=== PATIENT | male | born 1995 | race African-American/Black ===

== ENCOUNTER 2016-08-23 12:04 | Emergency (ER) | payer MEDICAID ==
[~2016-08-23] VITALS: Ht 193 cm; Wt 76.8 kg
[2016-08-23 12:07] VITALS: BP 131/78; PULSE 80; RESP 12; TEMP 98.6; O2SAT 97
--- NOTE | 2016-08-23 12:46 | PD ---
HPI Chief Complaint: Abdominal Pain Time Seen by Provider: 12:34 Travel History International Travel<30 days: No Contact w/Intl Traveler<30days: No Traveled to known affect area: No History of Present Illness HPI Patient is a 21 year old male who presents to ER with c/o of 1 week of continuous left sided testicular pain with penile discharge. Reports no trauma to testicles/penis. Reports that he has been sexually active with a "random partner." Reports that he does not have hx of std's in the past. reports dysuria with urgency and freq with discharge to penis which started 1 week ago along with his testicular pain PFS Past Medical History Medical History: Denies Significant Hx Immunizations Current: No Tetanus Vaccination: > 5 Years Influenza Vaccination: No Past Surgical History Surgical History: No Previous Surgery Family History Family History: Negative Social History Alcohol Use: Yes (LIQUOR DAILY ) Tobacco Use: No Substance Use: Yes (MARIJUANA ) Allergies-Medications (Allergen,Severity, Reaction): Coded Allergies: No Known Allergies (Unverified , 08/23/16) Reported Meds & Prescriptions Reported Meds & Active Scripts Active Doxycycline Hyclate 100 Mg Cap 100 Mg PO BID 10 Days Review of Systems General / Constitutional: No: Fever Eyes: No: Visual changes HENT: No: Headaches Cardiovascular: No: Chest Pain or Discomfort Respiratory: No: Shortness of Breath Gastrointestinal: No: Nausea, Vomiting, Diarrhea, Abdominal Pain Genitourinary: Positive: Dysuria, Other (penile discharge, testicular pain) Musculoskeletal: No: Pain Skin: No Rash Neurologic: No: Weakness Psychiatric: No: Depression Endocrine: No: Polydipsia Hematologic/Lymphatic: No: Easy Bruising Physical Exam Narrative GENERAL: No acute distress, nontoxic SKIN: Warm and dry. HEAD: Atraumatic. Normocephalic. EYES: Pupils equal and round. No scleral icterus. No injection or drainage. ENT: No nasal bleeding or discharge. Mucous membranes pink and moist. NECK: Trachea midline. No JVD. CARDIOVASCULAR: Regular rate and rhythm. No murmur appreciated. RESPIRATORY: No accessory muscle use. Clear to auscultation. Breath sounds equal bilaterally. GASTROINTESTINAL: Abdomen soft, non-tender, nondistended. Hepatic and splenic margins not palpable. : Exam performed with RN at bedside, patient with bilateral descended testicles in vertical lie, normal cremasterics reflex bilaterally, minimal clear penile discharge, circumcised phallus MUSCULOSKELETAL: No obvious deformities. No clubbing. No cyanosis. No edema. NEUROLOGICAL: Awake and alert. No obvious cranial nerve deficits. Motor grossly within normal limits. Normal speech. PSYCHIATRIC: Appropriate mood and affect; insight and judgment normal. Data Data Last Documented VS Vital Signs Date Time Temp Pulse Resp B/P Pulse Ox O2 Delivery O2 Flow Rate FiO2 08/23/16 13:14 83 20 167/105 95 Room Air 08/23/16 12:07 98.6 Orders Gc And Chlamydia Pcr (08/23/16 12:42) Ua Includes Microscopic (08/23/16 12:42) Us Testicles W Doppler (08/23/16 ) Azithromycin Powd Pack (Zithromax Powd P (08/23/16 14:30) Lidocaine 1% Inj (50 Ml) (Xylocaine 1% I (08/23/16 14:30) Ceftriaxone Inj (Rocephin Inj) (08/23/16 14:30) MDM Medical Decision Making Medical Screen Exam Complete: Yes Emergency Medical Condition: Yes Interpretation(s) Vital Signs Date Time Temp Pulse Resp B/P Pulse Ox O2 Delivery O2 Flow Rate FiO2 08/23/16 13:14 83 20 167/105 95 Room Air 08/23/16 12:35 18 08/23/16 12:07 98.6 80 12 131/78 97 Room Air Differential Diagnosis Urethritis, testicular torsion, epididymitis, UTI Narrative Course 21-year-old male who presents to emergency room with complaints of left-sided testicular pain along with penile discharge for the past week. Patient reports that testicular pain has been ongoing for the past week, has not been intermittent in nature. Ultrasound of testicles ordered to evaluate for possible testicular torsion UA as well as urine gonorrhea/chlamydia cultures ordered for evaluation of possible urethritis. Patient does have discharge and exam, patient request be treated for possible STDs at this time. Testicular ultrasound shows: Left epididymal orchitis. Left testicular microlithiasis. Left scrotal wall thickening. Left varicocele. A copy patient 's ultrasound report was given to patient. Discussed need for treatment for this epididymal orchitis. Patient will follow-up with urology as outpatient. Understands that all sexual partners will be treated. copy of us report given to pt at discharge Diagnosis Primary Impression: Epididymitis Additional Impressions: Orchitis and epididymitis Urethritis Patient Instructions: General Instructions Additional Instructions: Please follow up with CULTURES from today, if cultures are positive, all sexual partners will need to be treated, please refrain from sexual activity until all cultures have been resulted Please follow up with urologist as soon as possible Please bring a copy of your ultrasound report to doctor's office for follow-up Return to ER as needed Return to ER immediately if you have return of pain to the testicles Med/Other Pt SpecificInfo: Prescription(s) given Scripts Doxycycline Hyclate 100 Mg [id number] Mg PO BID 10 Days Ref 0 Prov:Isabella Zapata DO 08/23/16 Disposition: 01 DISCHARGE HOME Isabella Zapata DO Aug 23, 2016 12:46
[2016-08-23 13:14] VITALS: BP 167/105; PULSE 83; RESP 20; O2SAT 95
--- NOTE | 2016-08-23 14:08 | RADRPT ---
EXAM DATE/TIME: 08/23/2016 13:04 [facility] COMPARISON: No previous studies available for comparison. INDICATIONS : Left testicle pain for one week. MEDICAL HISTORY : Left testicle pain for one week. SURGICAL HISTORY : None. ENCOUNTER: Initial ACUITY: 1 week PAIN SCORE: 10/10 LOCATION: Bilateral scrotum. MEASUREMENTS: RIGHT TESTICLE: 3.6 x 2.1 x 1.5cm LEFT TESTICLE: 4.2 x 2.9 x 2.7 cm FINDINGS: The right epididymis and right testicle are normal. The left testicle demonstrates increased vascular ity mild inhomogeneity with a few microliths. A mass is not seen. The epididymis is prominent with in creased blood flow. A left-sided varicocele is noted. Mild scrotal thickening on the left. CONCLUSION: Left epididymal orchitis. Left testicular microlithiasis. Left scrotal wall thickening. Left varicoce le. Justin Childress MD on August 23, 2016 at 14:05 Board Certified Radiologist. This report was verified electronically.
[2016-08-23] MEDS ORDERED: DOXY100C PO (14:26)
[2016-08-23] MEDS ORDERED: LIDOCAINE HCL 1% 50 ML VIAL IM ONE (14:30)
[2016-08-23] MEDS ORDERED: AZITHROMYCIN PWD FOR SUSP 1 GM PACKET PO ONE (14:30)
[2016-08-23 15:54] LABS: BLOOD, URINE NEG (NEG); GLUCOSE,URINE NEG (NEG); KETONE, URINE 10 mg/dL (NEG); MUCUS URINE FEW /lpf (OCC); NITRITE,URINE NEG (NEG); PH, URINE 7.5 (5.0-8.5); SQUAMOUS EPITHELIAL CELL URINE <1 /hpf (0-5); URINE COLOR YELLOW (YELLW/STRAW)
[2016-08-23 20:07] LABS: CHLAMYDIA PCR DETECTED (NOT DETECT); NEISSERIA PCR DETECTED (NOT DETECT)
== END 2016-08-23 15:32 | disposition home or self-care (01) ==
LOC: NEPA 12:04
DX: N45.3 Epididymo-orchitis (principal); N34.2 Other urethritis; R36.9 Urethral discharge, unspecified
CPT/HCPCS: 76870; 81001; 87491; 87591; 93975; 96365; 99284; J0696

== ENCOUNTER 2016-08-26 10:57 | Emergency (ER) | payer MEDICAID ==
[~2016-08-26] VITALS: Ht 193 cm; Wt 72.7 kg
[~2016-08-26 10:57] MED LIST: DOXY100C PO
[2016-08-26 10:58] VITALS: BP 118/66; PULSE 63; RESP 15; TEMP 98.2; O2SAT 98
--- NOTE | 2016-08-26 11:51 | PD ---
HPI Chief Complaint: Complaint Time Seen by Provider: 11:50 Travel History International Travel<30 days: No Contact w/Intl Traveler<30days: No Traveled to known affect area: No History of Present Illness HPI 21-year-old male presents to emergency department requesting follow-up from his August 23 visit to the emergency department.. Patient was seen and evaluated in the emergency department and treated for gonorrhea and chlamydia. He states that he did not hear any follow-up with you is positive or not. He currently reports no symptoms. Has no abdominal pain. No fever or chills. No other symptoms to report. History Social History Alcohol Use: Yes (LIQUOR DAILY ) Tobacco Use: No Allergies-Medications (Allergen,Severity, Reaction): Coded Allergies: No Known Allergies (Unverified , 08/23/16) Reported Meds & Prescriptions Reported Meds & Active Scripts Active Doxycycline Hyclate 100 Mg Cap 100 Mg PO BID 10 Days Review of Systems Except as stated in HPI: all other systems reviewed are Neg Physical Exam Narrative GENERAL: Well-nourished, well-developed male patient in no acute distress SKIN: Warm and dry. HEAD: Normocephalic. EYES: No scleral icterus. No injection or drainage. NECK: Supple, trachea midline. No JVD or lymphadenopathy. CARDIOVASCULAR: Regular rate and rhythm without murmurs, gallops, or rubs. RESPIRATORY: Breath sounds equal bilaterally. No accessory muscle use. GASTROINTESTINAL: Abdomen soft, non-tender, nondistended. MUSCULOSKELETAL: No cyanosis, or edema. BACK: Nontender without obvious deformity. No CVA tenderness. Data Data Last Documented VS Vital Signs Date Time Temp Pulse Resp B/P Pulse Ox O2 Delivery O2 Flow Rate FiO2 08/26/16 10:58 98.2 63 15 118/66 98 MDM Medical Screen Exam Complete: Yes Emergency Medical Condition: No Differential Diagnosis STD follow-up, positive gonorrhea Chlamydia August 23, 2016 Narrative Course 21-year-old male presents to the emergency department for follow-up. Patient was positive for gonorrhea and chlamydia following his August 23, 2016 visit. He was treated with azithromycin and Rocephin at that visit. I informed the patient that these results were positive but he was treated and is to follow-up with the health department for further STD testing and test for cure as well as his partners treated. At this time there are no urgent or emergent needs for medical intervention identified. A medical screening exam was performed: At the time of evaluation the presenting medical condition was determined not to be of an emergent nature. The patient was given the option of receiving additional care, but declined. Patient was given options for additional community resources from which to obtain care. The Patient Has Been advised to seek medical attention for their presenting complaint. The patient has been advised to return to the ER at any time if an emergent condition develops. Primary Impression: Encounter for medical screening examination Condition: Jojo Zimmerman Aug 26, 2016 11:51
== END 2016-08-26 11:58 | disposition left against medical advice (07) ==
LOC: NETRI 10:57
DX: A54.9 Gonococcal infection, unspecified (principal); A74.9 Chlamydial infection, unspecified
CPT/HCPCS: 99281

== ENCOUNTER 2016-08-28 03:01 | Emergency (ER) | payer MEDICAID ==
[~2016-08-28] VITALS: Ht 193 cm; Wt 76.0 kg
[2016-08-28 03:03] VITALS: BP 120/77; PULSE 62; RESP 16; TEMP 98.1; O2SAT 98
[2016-08-28] MEDS ORDERED: IBUP-232 PO (13:45)
[2016-08-28] MEDS ORDERED: DOXY100C PO (13:45)
== END 2016-08-28 04:25 | disposition left against medical advice (07) ==
LOC: NED 03:01
DX: N50.819 Testicular pain, unspecified (principal); Z53.21 Procedure and treatment not carried out due to patient leaving prior to being seen by health care provider
CPT/HCPCS: 99281

== ENCOUNTER 2016-08-28 09:13 | Emergency (ER) | payer MEDICAID ==
[~2016-08-28] VITALS: Ht 177.8 cm; Wt 75.0 kg
[2016-08-28 09:18] VITALS: BP 122/79; PULSE 62; RESP 16; TEMP 98.1; O2SAT 98
[2016-08-28] MEDS ORDERED: KETOROLAC TROMETHAMINE 60 MG/2 ML (IM) VIAL IM ONE (10:30)
--- NOTE | 2016-08-28 10:33 | PD ---
HPI Chief Complaint: Complaint Time Seen by Provider: 10:06 Travel History International Travel<30 days: No Contact w/Intl Traveler<30days: No Traveled to known affect area: No History of Present Illness HPI 21yo M with no PMH presents to the ED with c/o persistent left testicular pain for 2 weeks. Pt was seen here on 08/23/15 and US showed left epididymal orchitis and was prescribed doxycycline for 10 days. Pt was also given azithromycin PO and ceftriaxone IM on 08/23/15 and tested positive for chlamydia and gonorrhea. Pt states he never received the prescription for doxycycline so did not take it. +Nausea and NBNB vomiting. Denies any fever, chest pain, sob, abdominal pain. PFSH Past Medical History Diminished Hearing: No Immunizations Current: No Social History Alcohol Use: No (OCC) Tobacco Use: No Substance Use: Yes (MARIJUANA ) Allergies-Medications (Allergen,Severity, Reaction): Coded Allergies: No Known Allergies (Unverified , 08/28/16) Reported Meds & Prescriptions Reported Meds & Active Scripts Active Ibuprofen 600 Mg Tab 600 Mg PO Q8HR PRN Doxycycline Hyclate 100 Mg Cap 100 Mg PO BID 10 Days Doxycycline Hyclate 100 Mg Cap 100 Mg PO BID 10 Days Review of Systems Except as stated in HPI: all other systems reviewed are Neg Physical Exam Narrative GEN: 21yo M not in distress. HEAD: Normocephalic, atraumatic. NECK: Trachea midline. No JVD. CV: S1, S2. Lungs: CTA B/L, equal breath sounds. Abd: soft, NT/ND. No rebound tenderness or guarding. : +Enlarged left testicle, ttp. No penile discharge or rash. No inguinal region ttp. Ext: No calf tenderness. No lower extremity edema. Data Data Last Documented VS Vital Signs Date Time Temp Pulse Resp B/P Pulse Ox O2 Delivery O2 Flow Rate FiO2 08/28/16 13:27 16 08/28/16 10:59 80 08/28/16 09:18 98.1 122/79 98 Room Air Orders Us Testicles W Doppler (08/28/16 ) Ketorolac Inj (Toradol Inj) (08/28/16 10:30) Ondansetron Odt (Zofran Odt) (08/28/16 11:30) Complete Blood Count With Diff (08/28/16 11:21) Comprehensive Metabolic Panel (08/28/16 11:21) Lactic Acid (08/28/16 11:21) Sodium Chlor 0.9% 1000 Ml Inj (Ns 1000 M (08/28/16 11:30) Morphine Inj (Morphine Inj) (08/28/16 11:30) Labs Laboratory Tests Test 08/28/16 08/28/16 12:05 12:55 White Blood Count 11.8 TH/MM3 Red Blood Count 4.60 MIL/MM3 Hemoglobin 13.2 GM/DL Hematocrit 39.0 % Mean Corpuscular Volume 84.9 FL Mean Corpuscular Hemoglobin 28.6 PG Mean Corpuscular Hemoglobin 33.7 % Concent Red Cell Distribution Width 12.8 % Platelet Count 463 TH/MM3 Mean Platelet Volume 7.2 FL Neutrophils (%) (Auto) 81.2 % Lymphocytes (%) (Auto) 11.3 % Monocytes (%) (Auto) 6.6 % Eosinophils (%) (Auto) 0.2 % Basophils (%) (Auto) 0.7 % Neutrophils # (Auto) 9.6 TH/MM3 Lymphocytes # (Auto) 1.3 TH/MM3 Monocytes # (Auto) 0.8 TH/MM3 Eosinophils # (Auto) 0.0 TH/MM3 Basophils # (Auto) 0.1 TH/MM3 CBC Comment DIFF FINAL Differential Comment Lactic Acid Level 1.2 mmol/L Sodium Level 138 MEQ/L Potassium Level 4.1 MEQ/L Chloride Level 103 MEQ/L Carbon Dioxide Level 29.5 MEQ/L Anion Gap 6 MEQ/L Blood Urea Nitrogen 8 MG/DL Creatinine 1.04 MG/DL Estimat Glomerular Filtration 110 ML/MIN Rate Random Glucose 98 MG/DL Calcium Level 9.3 MG/DL Total Bilirubin 0.4 MG/DL Aspartate Amino Transf 15 U/L (AST/SGOT) Alanine Aminotransferase 20 U/L (ALT/SGPT) Alkaline Phosphatase 86 U/L Total Protein 7.9 GM/DL Albumin 3.8 GM/DL MDM Medical Decision Making Medical Screen Exam Complete: Yes Emergency Medical Condition: Yes Interpretation(s) Laboratory Tests Test 08/28/16 08/28/16 12:05 12:55 White Blood Count 11.8 TH/MM3 (4.0-11.0) Red Blood Count 4.60 MIL/MM3 (4.50-5.90) Hemoglobin 13.2 GM/DL (13.0-17.0) Hematocrit 39.0 % (39.0-51.0) Mean Corpuscular Volume 84.9 FL (80.0-100.0) Mean Corpuscular Hemoglobin 28.6 PG (27.0-34.0) Mean Corpuscular Hemoglobin 33.7 % Concent (32.0-36.0) Red Cell Distribution Width 12.8 % (11.6-17.2) Platelet Count 463 TH/MM3 (150-450) Mean Platelet Volume 7.2 FL (7.0-11.0) Neutrophils (%) (Auto) 81.2 % (16.0-70.0) Lymphocytes (%) (Auto) 11.3 % (9.0-44.0) Monocytes (%) (Auto) 6.6 % (0.0-8.0) Eosinophils (%) (Auto) 0.2 % (0.0-4.0) Basophils (%) (Auto) 0.7 % (0.0-2.0) Neutrophils # (Auto) 9.6 TH/MM3 (1.8-7.7) Lymphocytes # (Auto) 1.3 TH/MM3 (1.0-4.8) Monocytes # (Auto) 0.8 TH/MM3 (0-0.9) Eosinophils # (Auto) 0.0 TH/MM3 (0-0.4) Basophils # (Auto) 0.1 TH/MM3 (0-0.2) CBC Comment DIFF FINAL Differential Comment Lactic Acid Level 1.2 mmol/L (0.4-2.0) Sodium Level 138 MEQ/L (136-145) Potassium Level 4.1 MEQ/L (3.5-5.1) Chloride Level 103 MEQ/L (98-107) Carbon Dioxide Level 29.5 MEQ/L (21.0-32.0) Anion Gap 6 MEQ/L (5-15) Blood Urea Nitrogen 8 MG/DL (7-18) Creatinine 1.04 MG/DL (0.60-1.30) Estimat Glomerular Filtration 110 ML/MIN Rate (>89) Random Glucose 98 MG/DL (74-106) Calcium Level 9.3 MG/DL (8.5-10.1) Total Bilirubin 0.4 MG/DL (0.2-1.0) Aspartate Amino Transf 15 U/L (15-39) (AST/SGOT) Alanine Aminotransferase 20 U/L (9-52) (ALT/SGPT) Alkaline Phosphatase 86 U/L (45-117) Total Protein 7.9 GM/DL (6.4-8.2) Albumin 3.8 GM/DL (3.4-5.0) Laboratory Tests Test 08/28/16 08/28/16 12:05 12:55 White Blood Count 11.8 TH/MM3 (4.0-11.0) Red Blood Count 4.60 MIL/MM3 (4.50-5.90) Hemoglobin 13.2 GM/DL (13.0-17.0) Hematocrit 39.0 % (39.0-51.0) Mean Corpuscular Volume 84.9 FL (80.0-100.0) Mean Corpuscular Hemoglobin 28.6 PG (27.0-34.0) Mean Corpuscular Hemoglobin 33.7 % Concent (32.0-36.0) Red Cell Distribution Width 12.8 % (11.6-17.2) Platelet Count 463 TH/MM3 (150-450) Mean Platelet Volume 7.2 FL (7.0-11.0) Neutrophils (%) (Auto) 81.2 % (16.0-70.0) Lymphocytes (%) (Auto) 11.3 % (9.0-44.0) Monocytes (%) (Auto) 6.6 % (0.0-8.0) Eosinophils (%) (Auto) 0.2 % (0.0-4.0) Basophils (%) (Auto) 0.7 % (0.0-2.0) Neutrophils # (Auto) 9.6 TH/MM3 (1.8-7.7) Lymphocytes # (Auto) 1.3 TH/MM3 (1.0-4.8) Monocytes # (Auto) 0.8 TH/MM3 (0-0.9) Eosinophils # (Auto) 0.0 TH/MM3 (0-0.4) Basophils # (Auto) 0.1 TH/MM3 (0-0.2) CBC Comment DIFF FINAL Differential Comment Lactic Acid Level 1.2 mmol/L (0.4-2.0) Total Bilirubin 0.4 MG/DL (0.2-1.0) Alkaline Phosphatase 86 U/L (45-117) Total Protein 7.9 GM/DL (6.4-8.2) Differential Diagnosis Orchitis vs. epididymitis vs. torsion Narrative Course 21yo M well appearing male with c/o persistent left testicular pain, recently diagnosed with orchitis and treated for GC/chlamydia. Pt is mainly here because of persistent pain and did not take doxycycline that was prescribed. This is his third visit for the same complaint. Labs reviewed, mild leukocytosis at 11.8. Lactic acid 1.2. Pt initially given toradol but no relieve of pain so morphine was given. Pt also given zofran. Pt reevaluated at bedside and no longer has nausea and pain has resolved. Pt is well appearing and wants to go home. US showed inflammatory process such as orchitis. No torsion. There is minimal left testicular microlithiasis that does increase in the possibility neoplasm which I informed pt. Pt given a copy of US result and is to follow up with urologist. Diagnosis Primary Impression: Orchitis and epididymitis Patient Instructions: General Instructions Departure Forms: Tests/Procedures Additional Instructions: You have abnormal US scrotum result that needs to be followed up with urologist as an outpatient. Please call your insurance to see which urologist you can follow up with. Please follow up in 3-7 days. Return to the ED if symptoms worsen. Med/Other Pt SpecificInfo: Prescription(s) given Scripts Ibuprofen 600 Mg [id number] Mg PO Q8HR PRN (PAIN) #20 TAB Ref 0 Prov:Lisa Nice DO 08/28/16 Doxycycline Hyclate 100 Mg [id number] Mg PO BID 10 Days Ref 0 Prov:Lisa Nice DO 08/28/16 Disposition: 01 DISCHARGE HOME Condition: Stable Lisa Nice DO Aug 28, 2016 10:33
[2016-08-28] MEDS ORDERED: MORPHINE SULFATE 4 MG/ML INJ IV PUSH ONE (11:30)
[2016-08-28] MEDS ORDERED: ONDANSETRON ODT 4 MG TAB PO ONE (11:30)
[2016-08-28] MEDS ORDERED: SODIUM CHLOR 0.9% 1000 ML INJ 1,000 ML IV ONE (11:30)
[2016-08-28 12:24] LABS: AUTOMATED NEUTROPHIL # 9.6 TH/MM3 (1.8-7.7); BASOPHIL # 0.1 TH/MM3 (0-0.2); BASOPHIL % 0.7 % (0.0-2.0); EOSINOPHIL % 0.2 % (0.0-4.0); HEMO FLAGS DIFF FINAL; LYMPH % 11.3 % (9.0-44.0); LYMPHOCYTE # 1.3 TH/MM3 (1.0-4.8); MEAN CELL VOLUME 84.9 FL (80.0-100.0); MEAN CORPUSCULAR HEMOGLOBIN 28.6 PG (27.0-34.0); MEAN CORPUSCULAR HGB CONC 33.7 % (32.0-36.0); MONO % 6.6 % (0.0-8.0); NEUT % 81.2 % (16.0-70.0); PLATELET COUNT 463 TH/MM3 (150-450); RED CELL DISTRIBUTION WIDTH 12.8 % (11.6-17.2); WHITE BLOOD COUNT 11.8 TH/MM3 (4.0-11.0)
--- NOTE | 2016-08-28 13:06 | RADRPT ---
EXAM DATE/TIME: 08/28/2016 11:58 [facility] COMPARISON: US TESTICLE W/DOPPLER, August 23, 2016, 13:04. INDICATIONS : Pain in left testicle for two weeks. MEDICAL HISTORY : Orchitis. Microlithiasis. Varicocele. Multiple STD's. SURGICAL HISTORY : None. ENCOUNTER: Subsequent ACUITY: 2 weeks PAIN SCORE: 5/10 LOCATION: Left testicle. MEASUREMENTS: RIGHT TESTICLE: 3.8 x 2.4 x 1.6 cm LEFT TESTICLE: 4.2 x 3.0 x 2.4cm FINDINGS: There is symmetrical blood flow to both testicles. The right testicle appears homogeneous. The left testicle is inhomogeneous there is of increased and decreased density. This may well are present at inflammatory process such as orchitis. There is no hydrocele. CONCLUSION: Depression persistently abnormal left testicle that may be an inflammatory process as questioned. There is no evidence for torsion. There is minimal left testicular microlithiasis that does increase in the possibility neoplasm. Careful followup is suggested. Suhail Romero MD FACR on August 28, 2016 at 13:01 Board Certified Radiologist. This report was verified electronically.
[2016-08-28 13:26] LABS: ALKALINE PHOSPHATASE 86 U/L (45-117); ALT (GPT) 20 U/L (9-52); ANION GAP 6 MEQ/L (5-15); AST (GOT) 15 U/L (15-39); BICARBONATE 29.5 MEQ/L (21.0-32.0); BLOOD UREA NITROGEN 8 MG/DL (7-18); CHLORIDE 103 MEQ/L (98-107); GLOMERULAR FILTRATION RATE 110 ML/MIN (>89); SODIUM (NA) 138 MEQ/L (136-145); TOTAL BILIRUBIN ADULT 0.4 MG/DL (0.2-1.0)
[2016-08-28 13:27] VITALS: RESP 16
[2016-08-28 13:42] LABS: POTASSIUM 4.1 MEQ/L (3.5-5.1)
[2016-08-28] MEDS ORDERED: IBUP-232 PO (13:45)
[2016-08-28] MEDS ORDERED: DOXY100C PO (13:45)
[2016-08-28 13:57] VITALS: BP 127/78
== END 2016-08-28 15:00 | disposition home or self-care (01) ==
LOC: NEDAMB 09:13
DX: N45.2 Orchitis (principal); N45.1 Epididymitis; F12.90 Cannabis use, unspecified, uncomplicated
CPT/HCPCS: 76870; 80053; 83605; 85025; 93975; 96372; 96374; 99284; J1885; J2270; J7030